=== PATIENT | female | born 1990 | race Caucasian/White ===

== ENCOUNTER → 2019-04-20 17:08 | Outpatient (CLI) | payer OTHER, SELFPAY ==
[2019-04-20 17:31] LABS: Basophils # 0.1 K/mm3 (0-0.2); Basophils % 0.5 % (0.1-2.0); Eosinophils # 0.2 K/mm3 (0.0-0.4); Eosinophils % 1.7 % (0.1-12.0); Hematocrit 42.2 % (37.0-47.0); Hemoglobin 13.5 g/dL (12.2-16.2); Lymphocytes # 2.9 K/mm3 (0.7-4.5); Lymphocytes % 29.6 % (10-50); Mean Corpuscular HGB Conc 32.1 g/dL (31.8-35.4); Mean Corpuscular Hemoglobin 29.8 pg (27.0-31.2); Mean Corpuscular Volume 92.8 fl (81-99); Monocytes # 0.4 K/mm3 (0.1-1.0); Monocytes % 4.6 % (1.7-9.3); Neutrophils # 6.2 K/mm3 (1.8-7.8); Neutrophils % 63.7 % (37.0-80.0); Platelet Count 341 K/mm3 (142-424); Red Blood Count 4.54 M/mm3 (4.20-5.40); Red Cell Distribution Width 13.5 % (11.5-17.5); White Blood Count 9.7 K/mm3 (4.8-10.8)
[2019-04-20 19:35] LABS: Alanine Aminotransferase 15 U/L (12-78); Albumin Level 3.7 gm/dL (3.4-5.0); Albumin/Globulin Ratio 1.1 (1.1-1.8); Alkaline Phosphatase 63 U/L (46-116); Anion Gap 11.2 mEq/L (5-15); Aspartate Amino Transferase 14 U/L (15-37); Bilirubin,Total 0.4 mg/dL (0.2-1.0); Blood Urea Nitrogen 12 mg/dL (7-18); Calcium 8.9 mg/dL (8.5-10.1); Carbon Dioxide 25 mmol/L (21.0-32.0); Chloride 104 mmol/L (98-107); Cholesterol 163 mg/dL (140-200); Creatinine,Serum 0.69 mg/dL (0.55-1.02); Estimated Glomerular Filt Rate 101 ml/min (>60); Free T4 (Free Thyroxine) 0.97 ng/dl (0.76-1.46); GFR (African American) 122 ML/MIN (>60); Globulin 3.3 gm/dl (1.3-3.2); Glucose 76 mg/dL (74-106); HDL Cholesterol 41 mg/dL (29-89); LDL Cholesterol 105 mg/dL (0-130); Potassium 4.2 mmoL/L (3.5-5.1); Sodium 136 mmol/L (136-145); Thyroid Stimulating Hormone 0.48 uIU/ml (0.358-3.740); Triglycerides 83 mg/dL (30-200); VLDL Cholesterol 17 mg/dL (0-40)
[2019-04-23 13:56] LABS: Vitamin D 25 Hydroxy 14.7 ng/mL (30.0-100.0)
== END ==
PROVIDERS: Visit Provider Nurse Practitioner Family
DX: R53.83 Other fatigue (principal); E55.9 Vitamin D deficiency, unspecified
CPT/HCPCS: 80053; 80061; 82652; 84439; 84443; 85025

== ENCOUNTER 2020-02-01 06:55 | Emergency (ER) | payer OTHER, SELFPAY ==
[2020-02-01 06:57] VITALS: BP 116/76; PULSE 89; RESP 16; TEMP 36.8; O2SAT 100; BMI 29.2
[2020-02-01 07:19] LABS: Microscopic, Urine URINE MICROSCOPIC (MICROSCOPIC)
[2020-02-01 07:23] LABS: Chloride 107 mmol/L (98-107); Potassium 3.7 mmoL/L (3.5-5.1); Sodium 138 mmol/L (136-145)
--- NOTE | 2020-02-01 07:24 | HMH.EDNVD ---
ED Disposition Clinical Impression: Food poisoning, Headache above the eye region Disposition: Home, Self-Care Condition on Discharge: Good Instructions: DI for Nausea -- Adult, DI for Nausea -- Child, DI for Diarrhea and Traveler's Diarrhea -- Adult, DI for Diarrhea and Traveler's Diarrhea -- Child Prescriptions: Ondansetron [Zofran 4mg ODT] 4 mg PO TID PRN 4 Days #15 tab.rapdis PRN Reason: Nausea Transmission Status: Pending to [facility] Referrals: Ulises Vides MD [Primary Care Provider] - - Critical Care Critical Care Time: No Attestation: On , the high probability of a clinically significant, sudden or life threatening deterioration of the following system(s) required my full and direct attention, intervention and personal management. The time I documented below is in addition to time spent performing reported procedures but includes the following listed in this critical care notation. Medical Decision Making - Medical Records Medical records reviewed: Yes: I reviewed the patient's medical records. - Tom Inquiry Pt receiving controlled substance: No Vital Signs: 02/01/20 06:57 Temperature 98.2 F Temperature Source Oral Pulse Rate [Left Radial] 89 Respiratory Rate 16 Blood Pressure [Right Arm] 116/76 Blood Pressure Mean [Right Arm] 89 Blood Pressure Source [Right Arm] Automatic Cuff Blood Pressure Position [Right Arm] Sitting 02 Sat by Pulse Oximetry 100 Oxygen Delivery Method Room Air - Lab Data Lab results reviewed: Yes: I reviewed the patient's lab results. Orders (Tests/Meds): ED MEDICATIONS Generic Name Dose Route Start Last Admin Trade Name Freq PRN Reason Stop Dose Admin Sodium Chloride 1,000 mls @ 999 mls/hr 02/01/20 07:15 02/01/20 07:16 Sod Chlor 0.9% 1000ml Bag IV 02/01/20 08:15 999 mls/hr .Q1H1M JACQUIE Administration ORDERS Category Date Time Status Complete Blood Count Auto Diff Stat Lab 02/01/20 07:10 Received Comprehensive Metabolic Panel Stat Lab 02/01/20 07:10 Received Ethyl Alcohol Stat Lab 02/01/20 07:10 Received UDS [Drug Screen,Urine] Stat Lab 02/01/20 07:10 Received Urinalysis and Microscopic Stat Lab 02/01/20 07:10 Received Urine , HCG Qual. Stat Lab 02/01/20 07:10 Received Nausea/Vomiting/Diarrhea HPI - General Chief complaint: Nausea/Vomiting/Diarrhea Stated complaint: Headache,Vomiting Time Seen by Provider: 02/01/20 07:24 Mode of Arrival: Ambulatory Source of Information: Patient Limitations: No Limitations Description of Symptoms (Recalled from ER Triage Doc. by RN): pt stated she had multiple episodes of vomiting since 2am this morning. pt stated she went to work this morning and got sick at work so they sent her home to be evaluated. pt denies any diarrhea or abd. pain at this time. pt stated i feel fine, i just have a slight headache. - History of Present Illness HPI Narrative: 29-year-old female presents the ED with an acute onset of nausea vomiting and headache. Patient states that she presented to work was her first day at work and they sent her here to be evaluated secondary to having one episode of emesis at work and having a headache. Patient states she has a history of headaches this is very similar to previous headaches that she has had in the past she describes the pain as a bandlike constriction going around her head and rates this pain 4 out of 10. She states alleviating factors include lying down and resting exacerbating factors include noises and bright lights. Patient denies any recent fever shakes or chills. Patient denies any sore throat or loss of taste or smell or arthralgias or myalgias or shortness of breath or cough. - Related Data Home Medications Medication Instructions Recorded Confirmed Escitalopram Oxalate 10 mg PO QDAY 06/22/19 06/22/19 Previous Rx's Medication Instructions Recorded Gentamicin Sulfate [Garamycin 0.3% 1 - 2 drops EYE-LEFT Q4H 7 Days #
[2020-02-01 07:25] LABS: Appearance,Urine CLEAR (Clear); Bilirubin,Urine Negative (Negative); Blood Urea Nitrogen 14 mg/dl (7-17); Blood, Urine Negative (Negative); Color,Urine YELLOW (Yellow); Creatinine Clearance Estimated 114 mL/min (50-200); Estimated Glomerular Filt Rate 84 ml/min (>60); GFR (African American) 102 ML/MIN (>60); Glucose,Urine (UA) Negative (Negative); Ketones,Urine Negative (Negative); Leukocyte Esterase,Urine Negative (Negative); Nitrate,Urine Negative (Negative); Protein,Urine Negative (Negative); Specific Gravity, Urine >= 1.030 (1.005-1.030); Urobilinogen,Urine 0.2 EU/dl (0.2)
[2020-02-01 07:26] LABS: Alanine Aminotransferase 21 U/L (12-78); Albumin Level 4.2 g/dl (3.5-5.0); Albumin/Globulin Ratio 1.3 (1.1-1.8); Alkaline Phosphatase 64 U/L (38-126); Anion Gap 10.7 mEq/L (5-15); Aspartate Amino Transferase 28 U/L (14-36); Bilirubin,Total 0.8 mg/dl (0.2-1.3); Calcium 9.5 mg/dl (8.4-10.2); Carbon Dioxide 24 mmol/L (22.0-30.0); Globulin 3.3 g/dL (1.3-3.2); Glucose 117 mg/dl (74-100); Total Protein,Serum 7.5 g/dl (6.3-8.2)
[2020-02-01 07:28] LABS: Basophils # 0.1 K/mm3 (0-0.2); Eosinophils # 0.3 K/mm3 (0.0-0.4); Eosinophils % 4.1 % (0.1-12.0); Hematocrit 46.5 % (37.0-47.0); Hemoglobin 16.2 g/dL (12.2-16.2); Lymphocytes # 2.6 K/mm3 (0.7-4.5); Lymphocytes % 34.5 % (10-50); Mean Corpuscular HGB Conc 34.8 g/dL (31.8-35.4); Mean Corpuscular Hemoglobin 32.1 pg (27.0-31.2); Mean Corpuscular Volume 92.2 fl (81-99); Mean Platelet Volume 7.7 fl (7.4-10.4); Monocytes # 0.5 K/mm3 (0.1-1.0); Neutrophils # 4.1 K/mm3 (1.8-7.8); Neutrophils % 54.4 % (37.0-80.0); Platelet Count 337 K/mm3 (142-424); Red Blood Count 5.04 M/mm3 (4.20-5.40); Urine Pregnancy, HCG Qual. Negative (Negative); White Blood Count 7.5 K/mm3 (4.8-10.8)
[2020-02-01 07:29] LABS: Ethyl Alcohol < 10 mg/dl (0-10)
[2020-02-01 07:35] LABS: Barbiturates Screen,Urine Negative ng/ml (<200)
[2020-02-01 07:36] LABS: Benzodiazepines Screen,Urine Negative ng/ml (<200)
[2020-02-01 07:37] VITALS: BP 118/70; PULSE 85; RESP 16; TEMP 36.8; O2SAT 100
[2020-02-01 07:37] LABS: Amphetamine/Metha Screen,Urine Negative ng/ml (<1000); Cannabinoid Screen,Urine Positive ng/ml (<50)
[2020-02-01 07:38] LABS: Cocaine Screen,Urine Negative ng/ml (<300)
[2020-02-01 07:39] LABS: Methadone Screen,Urine Negative ng/ml (<300); Opiate Screen,Urine Negative ng/ml (<300)
[2020-02-01 07:40] LABS: Phencyclidine Screen,Urine Negative ng/ml (<25)
== END 2020-02-01 07:46 | disposition home or self-care (01) ==
PROVIDERS: Emergency Provider Family Medicine; PCP Emergency Medicine
DX: A05.9 Bacterial foodborne intoxication, unspecified (principal); R51 Headache; F17.210 Nicotine dependence, cigarettes, uncomplicated
CPT/HCPCS: 80053; 80305; 81001; 81025; 85025; 96365; 99282

== ENCOUNTER 2020-04-07 06:51 | Emergency (ER) | payer OTHER, SELFPAY ==
[2020-04-07 07:00] VITALS: BP 166/89; PULSE 96; RESP 16; TEMP 36.6; O2SAT 98; BMI 28.3
[2020-04-07 07:19] LABS: Microscopic, Urine URINE MICROSCOPIC (MICROSCOPIC)
[2020-04-07 07:25] LABS: Appearance,Urine CLEAR (Clear); Bilirubin,Urine Negative (Negative); Blood, Urine Negative (Negative); Color,Urine YELLOW (Yellow); Glucose,Urine (UA) Negative (Negative); Ketones,Urine Negative (Negative); Leukocyte Esterase,Urine Negative (Negative); Nitrate,Urine POSITIVE (Negative); Protein,Urine Negative (Negative); Specific Gravity, Urine >= 1.030 (1.005-1.030); Urobilinogen,Urine 0.2 EU/dl (0.2)
[2020-04-07 07:29] LABS: Chloride 108 mmol/L (98-107); Potassium 4.1 mmoL/L (3.5-5.1); Sodium 138 mmol/L (136-145)
[2020-04-07 07:31] LABS: Alanine Aminotransferase 25 U/L (12-78); Alkaline Phosphatase 55 U/L (38-126); Amylase 55 U/L (30-110); Anion Gap 10.1 mEq/L (5-15); Aspartate Amino Transferase 28 U/L (14-36); Bilirubin,Total 0.3 mg/dl (0.2-1.3); Blood Urea Nitrogen 11 mg/dl (7-17); Carbon Dioxide 24 mmol/L (22.0-30.0); Creatinine Clearance Estimated 110 mL/min (50-200); Estimated Glomerular Filt Rate 84 ml/min (>60); GFR (African American) 102 ML/MIN (>60)
[2020-04-07 07:32] LABS: Albumin Level 4.2 g/dl (3.5-5.0); Albumin/Globulin Ratio 1.4 (1.1-1.8); Calcium 9.4 mg/dl (8.4-10.2); Glucose 103 mg/dl (74-100); Lipase 78 U/L (23-300); Total Protein,Serum 7.2 g/dl (6.3-8.2)
[2020-04-07 07:35] LABS: Basophils # 0.1 K/mm3 (0-0.2); Basophils % 0.6 % (0.1-2.0); Eosinophils # 0.4 K/mm3 (0.0-0.4); Eosinophils % 4.2 % (0.1-12.0); Hematocrit 46.3 % (37.0-47.0); Hemoglobin 16.1 g/dL (12.2-16.2); Lymphocytes # 2.9 K/mm3 (0.7-4.5); Lymphocytes % 32.3 % (10-50); Mean Corpuscular HGB Conc 34.7 g/dL (31.8-35.4); Mean Corpuscular Hemoglobin 32.6 pg (27.0-31.2); Mean Platelet Volume 8.1 fl (7.4-10.4); Monocytes # 0.5 K/mm3 (0.1-1.0); Neutrophils # 5.2 K/mm3 (1.8-7.8); Neutrophils % 57.1 % (37.0-80.0); Platelet Count 302 K/mm3 (142-424); Red Blood Count 4.93 M/mm3 (4.20-5.40); Red Cell Distribution Width 13.6 % (11.5-17.5)
[2020-04-07 07:36] LABS: Urine Pregnancy, HCG Qual. Negative (Negative)
[2020-04-07 07:38] LABS: C-Reactive Protein 0.6 mg/L (0-4)
[2020-04-07 07:40] LABS: Bacteria,Urine Trace /lpf
--- NOTE | 2020-04-07 08:05 | XR_ITS ---
PROCEDURE: XR CHEST 2V CLINICAL HISTORY: cough COMPARISON: CT CTAC CTA-CHEST from 11/11/2012 CR CXR CHEST(2 VIEWS-NOT PORTABLE) from 11/11/2012 FINDINGS: The cardiomediastinal silhouette and pulmonary vascularity are within normal limits. The lungs are clear without infiltrates, suspicious nodules, or pleural effusions. Calcified granulomas are present in the right upper lobe No acute bony abnormalities. IMPRESSION: No acute findings. Dictated by: Randall De La Cruz MD 04/07/2020 09:50 Randall De La Cruz MD in [place] 04/07/2020 09:50
[2020-04-07 08:06] LABS: Erythrocyte Sedimentation Rate 7 mm/hr (0-20)
[2020-04-07 08:22] VITALS: BP 120/66; PULSE 61; RESP 16; O2SAT 99
--- NOTE | 2020-04-07 08:22 | HMH.EDGENADL ---
ED Disposition Clinical Impression: Gastroenteritis UTI (urinary tract infection) Qualifiers: Urinary tract infection type: acute cystitis Hematuria presence: without hematuria Qualified Code(s): N30.00 - Acute cystitis without hematuria Disposition: Home, Self-Care Condition on Discharge: Good Instructions: Urinary Tract Infection Prescriptions: cephALEXin [Keflex 500mg Cap] 500 mg PO BID #14 cap Transmission Status: Pending to [facility] Ondansetron [Zofran 4mg ODT] 4 mg PO BIDP PRN #10 tab PRN Reason: Nausea And Vomiting Transmission Status: Pending to [facility] Referrals: Brian Tyler MD [Primary Care Provider] - - Critical Care Critical Care Time: No Attestation: On 04/07/20, the high probability of a clinically significant, sudden or life threatening deterioration of the following system(s) required my full and direct attention, intervention and personal management. The time I documented below is in addition to time spent performing reported procedures but includes the following listed in this critical care notation. Medical Decision Making - Medical Records Medical records reviewed: Yes: I reviewed the patient's medical records. - Tom Inquiry Pt receiving controlled substance: No Vital Signs: 04/07/20 07:00 04/07/20 08:22 Temperature 97.9 F Temperature Source Oral Pulse Rate [Right] 96 H 61 Respiratory Rate 16 16 Blood Pressure [Right Arm] 166/89 H 120/66 Blood Pressure Mean [Right Arm] 114 84 Blood Pressure Source [Right Arm] Automatic Cuff Automatic Cuff Blood Pressure Position [Right Arm] Sitting Sitting 02 Sat by Pulse Oximetry 98 99 Oxygen Delivery Method Room Air Room Air - Lab Data Lab Results 04/07/20 06:55: Urine Color Yellow, Urine Appearance Clear, Urine pH 6.0, Ur Specific Mcalister >= 1.030, Urine Protein Negative, Urine Glucose (UA) Negative, Urine Ketones Negative, Urine Blood Negative, Urine Nitrate Positive, Urine Bilirubin Negative, Urine Urobilinogen 0.2, Ur Leukocyte Esterase Negative, Urine WBC 3-5, Ur Squamous Epith Cells 3-5, Urine Bacteria Trace 04/07/20 06:55: WBC 9.0, RBC 4.93, Hgb 16.1, Hct 46.3, MCV 94.0, MCH 32.6 H, MCHC 34.7, RDW 13.6, Plt Count 302, MPV 8.1, Neut % (Auto) 57.1, Lymph % (Auto) 32.3, Owen % (Auto) 6.0, Eos % (Auto) 4.2, Baso % (Auto) 0.6, Neut # (Auto) 5.2, Lymph # (Auto) 2.9, Owen # (Auto) 0.5, Eos # (Auto) 0.4, Baso # (Auto) 0.1, ESR 7 04/07/20 06:55: Sodium 138, Potassium 4.1, Chloride 108 H, Carbon Dioxide 24, Anion Gap 10.1, BUN 11, Creatinine 0.80, Estimated Creat Clear 110, Estimated GFR 84, Est GFR ( Amer) 102, Glucose 103 H, Calcium 9.4, Total Bilirubin 0.3, AST 28, ALT 25, Alkaline Phosphatase 55, C-Reactive Protein 0.6, Total Protein 7.2, Albumin 4.2, Globulin 3.0, Albumin/Globulin Ratio 1.4, Amylase 55, Lipase 78 04/07/20 06:55: Influenza Type A Ag Negative, Influenza Type B Ag Negative 04/07/20 06:55: Urine HCG, Qual Negative Result diagrams: 04/07/20 06:55 04/07/20 06:55 Orders (Tests/Meds): ED MEDICATIONS Discontinued Medications Generic Name Dose Route Start Last Admin Trade Name Freq PRN Reason Stop Dose Admin Sodium Chloride 1,000 mls @ 999 mls/hr 04/07/20 07:15 04/07/20 07:11 Sod Chlor 0.9% 1000ml Bag IV 04/07/20 08:15 999 mls/hr .Q1H1M JACQUIE Administration Ketorolac Tromethamine 30 mg 04/07/20 07:07 04/07/20 07:11 Ketorolac 30mg/Ml Vial IV 04/07/20 07:08 30 mg ONCE ONE Administration Ondansetron HCl 4 mg 04/07/20 07:07 04/07/20 07:11 Ondansetron 4mg/2ml Vial IV 04/07/20 07:08 4 mg ONCE ONE Administration ORDERS Category Date Time Status XR chest 2V Stat Exams 04/07/20 08:05 Taken Covid-19 Nasal PCR ([facility]) Routine Lab 04/07/20 08:05 Received - Radiology Data #1 Image(s): Chest Image Reviewed: Yes I reviewed the patient's radiology results, Yes I reviewed the patient's radiology image Preliminary Findings: Normal/NAD - Ree
[2020-04-07 09:19] VITALS: BP 122/81; PULSE 79; RESP 17; TEMP 36.8; O2SAT 100
== END 2020-04-07 09:24 | disposition home or self-care (01) ==
PROVIDERS: Emergency Provider Emergency Medicine; PCP Internal Medicine Adolescent Medicine
DX: Z20.828 Contact with and (suspected) exposure to other viral communicable diseases (principal); K52.9 Noninfective gastroenteritis and colitis, unspecified; N30.00 Acute cystitis without hematuria; F17.210 Nicotine dependence, cigarettes, uncomplicated
CPT/HCPCS: 71046; 80053; 81001; 81025; 82150; 83690; 85025; 85651; 86140; 87275; 87276; 96365; 96375; 99283; J2405; U0003

== ENCOUNTER 2020-04-29 10:30 | Emergency (ER) | payer OTHER, SELFPAY ==
[2020-04-29 10:55] VITALS: BP 141/87; PULSE 73; RESP 19; TEMP 36.9; O2SAT 99; BMI 25.4
--- NOTE | 2020-04-29 11:08 | HMH.EDUTC ---
[facility] [place] Clinical Impression: Encounter for laboratory testing for COVID-19 virus Disposition: Home, Self-Care Condition on Discharge: Good Instructions: Preventing the Spread of Coronavirus Discharge Instructions Additional Instructions: *Monitor Temp, Over the counter Motrin or Tylenol as directed/as needed Tylenol every 4 hours and Motrin every 6 hours (as long as your family doctor has told you that you can take it) for fever or pain. and straight to ER if unable to lower temp less than 101.0 after medication given *Warm salt water gargles may help to soothe the throat *Throat Lozenges *Warm fluids like tea with honey may help to soothe the throat *Sleep elevated *Humidifier/Vaporizer Follow up IMMEDIATELY for new or worsening symptoms or no Noticeable improvement over the next 48-72 hours. 911 for difficulty breathing or swallowing You was tested for today for COVID19 your test result should be back in the next 24-48 hours, you may call to the [facility] tomorrow to see if your test results are back and the result [phone] [facility] hours are 9am-9pm You was given a handout with instructions for Self Quarantine and Self isolation for while you wait on test results and what to do if they are positive If you are positive the Health Dept will be contacting you also Referrals: Brian Tyler MD [Primary Care Provider] - As needed Forms: Work/School Release Time of Disposition: 11:11 Medical Decision Making - Tom Inquiry Pt receiving controlled substance: No Tom was queried for this patient: No Vital Signs: 04/29/20 10:55 Temperature 98.4 F Temperature Source Oral Pulse Rate [Right Brachial] 73 Respiratory Rate 19 Blood Pressure [Right Arm] 141/87 H Blood Pressure Mean [Right Arm] 105 Blood Pressure Source [Right Arm] Automatic Cuff Blood Pressure Position [Right Arm] Sitting 02 Sat by Pulse Oximetry 99 Oxygen Delivery Method Room Air Orders (Tests/Meds): ORDERS Category Date Time Status Covid-19 Nasal PCR Sendout Jaden Stat Lab 04/29/20 10:55 Received [facility] [place]PI - General Stated complaint: Covid test Time Seen by Provider: 04/29/20 11:08 Mode of Arrival: Ambulatory Source of Information: Patient Limitations: No Limitations Description of Symptoms (Recalled from Triage Doc. by RN): PATIENT REQUESTING COVID TEST. STATES HER DAUGHTER TEST POSITIVE AND HER JOB IS WANTING TEST BEFORE SHE CAN RETURN. DENIES SYMPTOMS HEENT Symptoms (Recalled from RN notes): No Resp Symptoms (Recalled from RN notes): No Skin Symptoms (Recalled from RN notes): No MS Symptoms (Recalled from RN notes): No Functional Status (Recalled from RN notes): WNL - History of Present Illness Provider Complaint: Patient state that she is here to get tested for COVID States that her daughter recently tested positive but she hasnt been around her but her work is making her get tested for COVID before she can return to work Denies any symptoms - Related Data Home Medications Medication Instructions Recorded Confirmed Escitalopram Oxalate 10 mg PO QDAY 06/22/19 04/07/20 Previous Rx's Medication Instructions Recorded Ondansetron [Zofran 4mg ODT] 4 mg PO BIDP PRN #10 tab 04/07/20 cephALEXin [Keflex 500mg Cap] 500 mg PO BID #14 cap 04/07/20 Allergies Allergy/AdvReac Type Severity Reaction Status Date / Time diphenhydramine Allergy Severe Unknown Verified 05/07/19 16:20 [From Benadryl Allergy] allergy reaction - Worker's Comp Is this a Worker's Comp case?: No [facility] History - Hepatitis A Screen Drug use history?: No High risk sexual behaviors?: No History of sexually transmitted infection?: No Currently employed?: No Childcare worker?: No Do you have indoor plumbing?: Yes Do you have electricity?: Yes Attestation statement:: This patient has been screened for Hepatitis A risk factors. I have reviewed the patient's past medical history: Yes Medical History: Denies:: Cancer
[2020-04-29 11:11] VITALS: BP 141/87; PULSE 73; RESP 19; TEMP 36.9; O2SAT 99
[2020-04-30 15:50] LABS: Covid-19 Nasal PCR Sendout Lex Not Detected
== END 2020-04-29 11:15 | disposition home or self-care (01) ==
PROVIDERS: Emergency Provider Nurse Practitioner; PCP Internal Medicine Adolescent Medicine
DX: Z20.828 Contact with and (suspected) exposure to other viral communicable diseases (principal)
CPT/HCPCS: 99201; U0004

== ENCOUNTER → 2020-11-12 18:19 | Outpatient (CLI) | payer OTHER, SELFPAY ==
[2020-11-12 18:52] LABS: Basophils # 0.1 K/mm3 (0-0.2); Basophils % 0.5 % (0.1-2.0); Eosinophils # 0.2 K/mm3 (0.0-0.4); Eosinophils % 2.5 % (0.1-12.0); Hematocrit 43.8 % (37.0-47.0); Hemoglobin 15.2 g/dL (12.2-16.2); Lymphocytes # 2.9 K/mm3 (0.7-4.5); Lymphocytes % 29.5 % (10-50); Mean Corpuscular HGB Conc 34.7 g/dL (31.8-35.4); Mean Corpuscular Volume 92.2 fl (81-99); Mean Platelet Volume 8.2 fl (7.4-10.4); Monocytes # 0.5 K/mm3 (0.1-1.0); Monocytes % 4.8 % (1.7-9.3); Neutrophils # 6.1 K/mm3 (1.8-7.8); Neutrophils % 62.7 % (37.0-80.0); Platelet Count 319 K/mm3 (142-424); Red Blood Count 4.75 M/mm3 (4.20-5.40); Red Cell Distribution Width 12.7 % (11.5-17.5); White Blood Count 9.7 K/mm3 (4.8-10.8)
[2020-11-12 19:02] LABS: Alanine Aminotransferase 15 U/L (12-78); Albumin Level 4.3 g/dl (3.5-5.0); Albumin/Globulin Ratio 1.4 (1.1-1.8); Alkaline Phosphatase 65 U/L (38-126); Anion Gap 13.2 mEq/L (5-15); Aspartate Amino Transferase 22 U/L (14-36); Bilirubin,Total 0.6 mg/dl (0.2-1.3); Blood Urea Nitrogen 14 mg/dl (7-17); Calcium 9.2 mg/dl (8.4-10.2); Carbon Dioxide 25 mmol/L (22.0-30.0); Chloride 104 mmol/L (98-107); Chol/HDL Ratio 5.2 (1-3.5); Cholesterol 183 mg/dl (140-200); Estimated Glomerular Filt Rate 98 ml/min (>60); GFR (African American) 119 ML/MIN (>60); Glucose 76 mg/dl (74-100); HDL Cholesterol 35 mg/dl (40-60); Potassium 4.2 mmoL/L (3.5-5.1); Sodium 138 mmol/L (136-145); Total Protein,Serum 7.3 g/dl (6.3-8.2); Triglycerides 107 mg/dl (30-150); VLDL Cholesterol 21 mg/dL (0-40)
[2020-11-12 19:19] LABS: 25-OH Vitamin D, Total 26.6 ng/mL (30-100)
[2020-11-12 19:21] LABS: T4 (Thyroxine) 10.1 ug/dl (5.53-11.0)
[2020-11-12 19:33] LABS: Thyroid Stimulating Hormone 1.28 uIU/mL (0.465-4.68)
== END ==
PROVIDERS: Visit Provider Nurse Practitioner Family
DX: R53.83 Other fatigue (principal); E55.9 Vitamin D deficiency, unspecified; F32.9 Major depressive disorder, single episode, unspecified; F41.9 Anxiety disorder, unspecified; Z72.0 Tobacco use
CPT/HCPCS: 80053; 80061; 82306; 84436; 84443; 85025

== ENCOUNTER 2021-02-03 18:50 | Emergency (ER) | payer OTHER, SELFPAY ==
[2021-02-03 19:20] VITALS: BP 116/81; PULSE 91; RESP 18; TEMP 37; O2SAT 100; BMI 23.8
--- NOTE | 2021-02-03 20:09 | HMH.EDUTC ---
[facility] [place] Disposition Clinical Impression: Exposure to COVID-19 virus Disposition: Home, Self-Care Condition on Discharge: Good Instructions: DI for COVID-19 (Suspected or Confirmed ), Preventing the Spread of Coronavirus Discharge Instructions Additional Instructions: *Monitor Temp, Over the counter Motrin or Tylenol as directed/as needed Tylenol every 4 hours and Motrin every 6 hours (as long as your family doctor has told you that you can take it) for fever or pain. and straight to ER if unable to lower temp less than 101.0 after medication given Follow up IMMEDIATELY for new or worsening symptoms or no Noticeable improvement over the next 48-72 hours. 911 for difficulty breathing or swallowing You were tested for today for COVID19 your test result should be back in the next 24-48 hours, You was given handout to access [facility] your results should be available on there later today if you do not have internet or trouble accessing you can call at [phone] You was given a handout with instructions for Self Quarantine and Self isolation for while you wait on test results and what to do if they are positive If you are positive the Health Dept will be contacting you also Make sure to take your Vitamins Vit. C Vit D and Zinc if you can take them Referrals: Ulises Vides MD [Primary Care Provider] - As needed Forms: Work/School Release Medical Decision Making - Tom Inquiry Pt receiving controlled substance: No Tom was queried for this patient: No Vital Signs: 02/03/21 19:20 Temperature 98.6 F Temperature Source Oral Pulse Rate [Right Brachial] 91 H Respiratory Rate 18 Blood Pressure [Right Arm] 116/81 Blood Pressure Mean [Right Arm] 92 Blood Pressure Source [Right Arm] Automatic Cuff Blood Pressure Position [Right Arm] Sitting 02 Sat by Pulse Oximetry 100 Oxygen Delivery Method Room Air Orders (Tests/Meds): ORDERS Category Date Time Status Covid-19 Nasal PCR ([facility]) Routine Lab 02/03/21 19:15 Ordered [facility] [place] HPI - General Stated complaint: covid test Time Seen by Provider: 02/03/21 20:09 Mode of Arrival: Ambulatory Source of Information: Patient Limitations: No Limitations Description of Symptoms (Recalled from Triage Doc. by RN): COVID TEST D/T EXPOSURE. DENIES SYMPTOMS HEENT Symptoms (Recalled from RN notes): No Resp Symptoms (Recalled from RN notes): No Skin Symptoms (Recalled from RN notes): No MS Symptoms (Recalled from RN notes): No Functional Status (Recalled from RN notes): WNL - History of Present Illness Provider Complaint: Patient state that she has been around her mother all week and today she tested positive for COVID states that she is not having any symptom but wanted to get tested - Related Data Previous Rx's Medication Instructions Recorded bupropion HCl 75 mg tablet See Rx Instructions .ROUTE 12/15/20 .COMPLEX #90 tab Allergies Allergy/AdvReac Type Severity Reaction Status Date / Time diphenhydramine Allergy Severe Unknown Verified 11/12/20 15:48 [From Benadryl Allergy] allergy reaction - Worker's Comp Is this a Worker's Comp case?: No [facility] History - Hepatitis A Screen Drug use history?: No High risk sexual behaviors?: No History of sexually transmitted infection?: No Currently employed?: No Childcare worker?: No Do you have indoor plumbing?: Yes Do you have electricity?: Yes Attestation statement:: This patient has been screened for Hepatitis A risk factors. I have reviewed the patient's past medical history: Yes Medical History: Denies:: Cancer, Diabetes Mellitus Type 1, Diabetes Mellitus Type 2, Gastroesophageal Reflux Disease(GERD), Gastrointestinal Bleed, Hiatal Hernia, Hypertension, MRSA Comment: Pelvic Reconstruction Laterality Cases: Right: Other, Bilateral: Tonsillectomy Other Surgeries: Yes: Other Amputation: No - Social History Smoking Status: Current every day smoker Tobacco Type: cigarettes # P
[2021-02-03 20:17] VITALS: BP 116/81; PULSE 91; RESP 18; TEMP 37; O2SAT 100
== END 2021-02-03 20:18 | disposition home or self-care (01) ==
PROVIDERS: Emergency Provider Nurse Practitioner; PCP Emergency Medicine
DX: Z20.822 Contact with and (suspected) exposure to COVID-19 (principal); F17.210 Nicotine dependence, cigarettes, uncomplicated
CPT/HCPCS: 99202; G0463; U0003

== ENCOUNTER → 2021-04-17 12:44 | Outpatient (CLI) | payer OTHER, SELFPAY | PROVIDERS: PCP Emergency Medicine; Visit Provider Nurse Practitioner | DX: Z20.822 Contact with and (suspected) exposure to COVID-19 (principal) | CPT/HCPCS: C9803; U0003; U0005 ==

== ENCOUNTER → 2021-04-24 13:39 | Outpatient (CLI) | payer OTHER, SELFPAY | PROVIDERS: PCP Emergency Medicine; Visit Provider Nurse Practitioner | DX: Z20.822 Contact with and (suspected) exposure to COVID-19 (principal) | CPT/HCPCS: C9803; U0003; U0005 ==

== ENCOUNTER 2021-09-02 16:13 | Emergency (ER) | payer OTHER, SELFPAY ==
[2021-09-02 17:40] VITALS: BP 0/0; PULSE 0; RESP 0; TEMP -17.7; TEMP 0
== END 2021-09-02 17:45 | disposition left against medical advice (07) ==
PROVIDERS: Emergency Provider Nurse Practitioner Family; PCP Emergency Medicine
DX: Z53.21 Procedure and treatment not carried out due to patient leaving prior to being seen by health care provider (principal)

== ENCOUNTER 2021-09-13 15:03 | Emergency (ER) | payer OTHER, SELFPAY ==
[2021-09-13 15:04] VITALS: BP 126/82; PULSE 90; RESP 16; TEMP 36.7; O2SAT 100; BMI 25.4
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
[2021-09-13 15:54] VITALS: BP 126/82; PULSE 70; RESP 16; TEMP 36.8; O2SAT 98
== END 2021-09-13 15:55 | disposition home or self-care (01) ==
LOC: ER 15:31
PROVIDERS: Emergency Provider Emergency Medicine; PCP Emergency Medicine
DX: S16.1XXA Strain of muscle, fascia and tendon at neck level, initial encounter (principal); R51.9 Headache, unspecified; F17.210 Nicotine dependence, cigarettes, uncomplicated; Z88.8 Allergy status to other drugs, medicaments and biological substances; V49.59XA Passenger injured in collision with other motor vehicles in traffic accident, initial encounter
CPT/HCPCS: 99283

== ENCOUNTER 2023-01-30 16:54 | Emergency (ER) | payer OTHER, SELFPAY ==
[2023-01-30 16:55] VITALS: BP 147/97; PULSE 90; RESP 18; TEMP 37.2; O2SAT 99; BMI 27.9
--- NOTE | 2023-01-30 17:04 | EXP.UTC ---
Discharge Plan Disposition Patient Disposition: Home, Self-Care Condition: Good Prescriptions Prescriptions: New benzonatate [benzonatate] 100 mg capsule 100 mg PO TIDP PRN (Reason: Cough) Qty: 30 0RF amoxicillin-pot clavulanate 875-125 mg Tablet 1 tab PO Q12H Qty: 20 0RF methylprednisolone 4 mg Tablets,Dose Pack 4 mg PO DIRECTED Qty: 21 0RF No Action nitrofurantoin monohyd/m-cryst [Macrobid] 100 mg capsule 100 mg PO BID Qty: 14 0RF Rx Instructions: must administer with a meal/food clindamycin HCl 300 mg capsule 300 mg PO BID 7 Days Qty: 14 0RF Referrals Follow up/Referrals: Brian Tyler MD [Primary Care Provider] - See instructions Activity Restrictions/Add. Instructions Additional Instructions/Restrictions: Drink plenty of fluids. Take tylenol or ibuprofen for pain or fever. Take the medications as directed. Follow up with your regular doctor. GO TO THE ER FOR ANY WORSENING SYMPTOMS Clinical Impressions Clinical Impression: Acute bronchitis, Sinusitis, Exposure to 2019 novel coronavirus Stand Alone Forms Stand Alone Forms: Work/School Release Instructions Patient Instructions: DI for Sinusitis, DI for Acute Bronchitis, Coronavirus Disease 2019, Preventing the Spread of Coronavirus Discharge Instructions Discharge ED Provider: Kris Palmer [facility] General Stated complaint: congestion, short of breath Time Seen by Provider: 01/30/23 17:03 History of Present Illness Provider Complaint: She states that for the past 3 days she has had sinus congestion, sore throat, chest congestion, productive cough with greenish sputum, low grade fever and malaise. She has been exposed to covid-19 by her sister having it. Related Data Previous Rx's Medication Instructions Recorded nitrofurantoin 100 mg PO BID #14 caps 09/29/22 monohydrate/macrocrystals 100 mg capsule (Macrobid) clindamycin HCl 300 mg capsule 300 mg PO BID 7 days #14 caps 10/01/22 amoxicillin 875 mg-potassium 1 tab PO Q12H #20 tabs 01/30/23 clavulanate 125 mg tablet benzonatate 100 mg capsule 100 mg PO TIDP PRN Cough #30 caps 01/30/23 methylprednisolone 4 mg tablets in 4 mg PO DIRECTED #21 tabs 01/30/23 a dose pack Allergies Allergy/AdvReac Type Severity Reaction Status Date / Time diphenhydramine Allergy Severe Unknown Verified 09/29/22 10:40 [From Benadryl Allergy] allergy reaction [facility] Disclaimer: The information contained in this section may have been updated after the patient was seen, as this information can be updated by other users. Surgical History H/O foot surgery right H/O pelvic surgery Family History (Updated 09/29/22 @ 10:48 by SAM Guzmán) Family/Other Cancer Social History Smoking Status: Current every day smoker tobacco type: cigarettes packs per day: 1 alcohol intake: never current occupational status: other Travel in the last 8 weeks: None ROS Obtained: Yes All systems reviewed & no additional complaints except as documented Constitutional Constitutional: Reports poor appetite Eyes Eyes: Reports system reviewed and no additional complaints, except as documented ENT Ears, Nose, Mouth, and Throat: Reports as per HPI Cardiovascular Cardiovascular: Reports system reviewed and no additional complaints, except as documented and Denies chest pain Respiratory Respiratory: Denies shortness of breath, Reports chest congestion, Reports cough, Denies stridor and Denies wheezing Gastrointestinal Gastrointestingal: Reports system reviewed and no additional complaints, except as documented; Denies abdominal pain, diarrhea or vomiting Musculoskeletal Musculoskeletal: Reports system reviewed and no additional complaints, except as documented and Denies arthralgias Integumentary/Breasts Skin/Breast: Reports system reviewed and no
[2023-01-30 17:19] LABS: UTC Strep Screen (Rapid) Negative (Negative)
[2023-01-30 17:36] VITALS: BP 147/97; PULSE 90; RESP 18; TEMP 37.2; O2SAT 99
== END 2023-01-30 17:37 | disposition home or self-care (01) ==
PROVIDERS: Emergency Provider Nurse Practitioner Family; PCP Internal Medicine Adolescent Medicine
DX: J20.9 Acute bronchitis, unspecified (principal); J01.90 Acute sinusitis, unspecified; R50.9 Fever, unspecified; R53.81 Other malaise; F17.210 Nicotine dependence, cigarettes, uncomplicated; Z20.822 Contact with and (suspected) exposure to COVID-19
CPT/HCPCS: 87880; 99212; 99214; G0463

== ENCOUNTER 2023-04-18 12:46 | Emergency (ER) | payer OTHER, SELFPAY ==
[2023-04-18 12:55] VITALS: BP 133/87; PULSE 96; RESP 18; TEMP 36.7; O2SAT 98; BMI 29.2
--- NOTE | 2023-04-18 13:06 | EXP.UTC ---
Discharge Plan Disposition Patient Disposition: Home, Self-Care Condition: Good Prescriptions Prescriptions: New azithromycin [Zithromax] 250 mg tablet 250 mg PO UD DOSE PK Qty: 6 0RF Rx Instructions: Take two (2) tablets today, then one (1) tablet days #2 thru #5 benzonatate [benzonatate] 100 mg capsule 100 mg PO TIDP PRN (Reason: Cough) Qty: 30 0RF methylprednisolone 4 mg Tablets,Dose Pack 4 mg PO DIRECTED Qty: 21 0RF Referrals Follow up/Referrals: Ulises Vides MD [Primary Care Provider] - See instructions Activity Restrictions/Add. Instructions Additional Instructions/Restrictions: Drink plenty of fluids. Take tylenol or ibuprofen for pain or fever. Take the medications as directed. Follow up with your regular doctor. GO TO THE ER FOR ANY WORSENING SYMPTOMS Clinical Impressions Clinical Impression: Sinusitis, Acute viral syndrome Stand Alone Forms Stand Alone Forms: Work/School Release Instructions Patient Instructions: Sinusitis, DI for Sinusitis Discharge ED Provider: Kris Palmer [facility] General Stated complaint: eye drainage, LOPEZ, cough Mode of Arrival: Ambulatory Source of Information: Patient Limitations: No Limitations Time Seen by Provider: 04/18/23 13:05 HEENT Symptoms (Recalled from RN notes): Yes Resp Symptoms (Recalled from RN notes): No Skin Symptoms (Recalled from RN notes): No MS Symptoms (Recalled from RN notes): No Functional Status (Recalled from RN notes): n/a History of Present Illness Provider Complaint: She states that she has had congestion, fever, and sore throat for the past 3 days. Related Data Previous Rx's Medication Instructions Recorded azithromycin 250 mg tablet 250 mg PO UD DOSE PK #6 tabs 04/18/23 (Zithromax) benzonatate 100 mg capsule 100 mg PO TIDP PRN Cough #30 caps 04/18/23 methylprednisolone 4 mg tablets in 4 mg PO DIRECTED #21 tabs 04/18/23 a dose pack Allergies Allergy/AdvReac Type Severity Reaction Status Date / Time diphenhydramine Allergy Severe Unknown Verified 04/18/23 13:06 [From Benadryl Allergy] allergy reaction Worker's Comp Is this a Worker's Comp case?: No [facility] Disclaimer: The information contained in this section may have been updated after the patient was seen, as this information can be updated by other users. Surgical History H/O foot surgery right H/O pelvic surgery Family History Family/Other Cancer Social History Smoking Status: Current every day smoker tobacco type: cigarettes packs per day: 1 alcohol intake: never current occupational status: other Travel in the last 8 weeks: None ROS Obtained: Yes All systems reviewed & no additional complaints except as documented Constitutional Constitutional: Reports poor appetite Eyes Eyes: Reports system reviewed and no additional complaints, except as documented ENT Ears, Nose, Mouth, and Throat: Reports as per HPI Cardiovascular Cardiovascular: Reports system reviewed and no additional complaints, except as documented and Denies chest pain Respiratory Respiratory: Denies shortness of breath, Reports chest congestion, Reports cough, Denies stridor and Denies wheezing Gastrointestinal Gastrointestingal: Reports system reviewed and no additional complaints, except as documented; Denies abdominal pain, diarrhea or vomiting Musculoskeletal Musculoskeletal: Reports system reviewed and no additional complaints, except as documented and Denies arthralgias Integumentary/Breasts Skin/Breast: Reports system reviewed and no additional complaints, except as documented and Denies rash Neurologic Neurologic: Denies paresthesias Allergic/Immunologic Allergic/Immunologic: Denies wheezing Physical Exam General General appearance: alert and in no apparent distres
[2023-04-18 13:11] LABS: UTC Strep Screen (Rapid) Negative (Negative)
[2023-04-18 13:25] VITALS: BP 133/87; PULSE 96; RESP 18; TEMP 36.7; O2SAT 98
== END 2023-04-18 13:25 | disposition home or self-care (01) ==
PROVIDERS: Emergency Provider Nurse Practitioner Family; PCP Emergency Medicine
DX: J01.90 Acute sinusitis, unspecified (principal); R50.9 Fever, unspecified; R07.0 Pain in throat; R09.81 Nasal congestion; R51.9 Headache, unspecified; R05.9 Cough, unspecified; B34.9 Viral infection, unspecified; F17.210 Nicotine dependence, cigarettes, uncomplicated
CPT/HCPCS: 87635; 87880; 99212; 99214; G0463

== ENCOUNTER → 2023-04-27 23:00 | Outpatient (CLI) | payer OTHER, SELFPAY ==
[2023-04-27 20:46] LABS: Thyroid Stimulating Hormone 1.16 uIU/mL (0.465-4.68)
[2023-04-27 21:05] LABS: Vitamin B12 288 pg/mL (239-931)
== END ==
PROVIDERS: PCP Emergency Medicine; Visit Provider Internal Medicine
DX: R53.83 Other fatigue (principal)
CPT/HCPCS: 82607; 84443

== ENCOUNTER 2023-07-19 08:58 | Emergency (ER) | payer SELFPAY ==
[2023-07-19 09:05] VITALS: BP 125/89; PULSE 108; RESP 21; TEMP 37.4; O2SAT 97; BMI 27.6
--- NOTE | 2023-07-19 09:15 | ED_ITS ---
Discharge Plan Disposition Patient Disposition: Home, Self-Care Condition: Good Prescriptions Prescriptions: No Action cariprazine 1.5 mg capsule 1.5 mg PO DAILY 30 Days Qty: 30 2RF Referrals Follow up/Referrals: Nelson Ayers DO [Primary Care Provider] - See instructions Activity Restrictions/Add. Instructions Additional Instructions/Restrictions: *Monitor Temp, Over the counter Motrin or Tylenol as directed/as needed Tylenol every 4 hours and Motrin every 6 hours (as long as your family doctor has told you that you can take it) for fever or pain. and straight to ER if unable to lower temp less than 101.0 after medication given *Warm salt water gargles may help to soothe the throat *Throat Lozenges? *Warm fluids like tea with honey may help to soothe the throat? *Sleep elevated *Humidifier/Vaporizer Follow up IMMEDIATELY for new or worsening symptoms or no Noticeable improvement over the next 48-72 hours. 911 for difficulty breathing or swall owing You were tested for today for Upper Respiratory Panel with COVID19 your test result should be back in the next 24 hours, you may check your results on the [facility] [employer] [facility] if your COVID test is positive you must Quarantine for 5 days Clinical Impressions Clinical Impression: Viral syndrome Stand Alone Forms Stand Alone Forms: Work/School Release Instructions Patient Instructions: DI for Viral Syndrome Discharge ED Provider: Leelee West [facility] HPI General Stated complaint: chills, body aches, nauseous Mode of Arrival: Ambulatory Source of Information: Patient Limitations: No Limitations Time Seen by Provider: 07/19/23 09:15 Description of Symptoms (Recalled from Triage Doc. by RN): PATIENT C/O BODY ACHES, COLD SWEATS AND NAUSEA SINCE YESTERDAY HEENT Symptoms (Recalled from RN notes): No Resp Symptoms (Recalled from RN notes): No Skin Symptoms (Recalled from RN notes): No MS Symptoms (Recalled from RN notes): No Functional Status (Recalled from RN notes): WNL History of Present Illness Provider Complaint: Patient states that alot of people at her work has been out sick states that she started feeling bad yesterday with chills, body aches, cold sweats and nausea States that she feels like she has had a fever but did not have a thermometer to check it and when it would break she would start sweating so today when she was still not feeling any better she came in Related Data Previous Rx's Medication Instructions Recorded cariprazine 1.5 mg capsule 1.5 mg PO DAILY 1 month #30 caps 05/03/23 Allergies Allergy/AdvReac Type Severity Reaction Status Date / Time diphenhydramine Allergy Severe Unknown Verified 04/27/23 15:14 [From Benadryl Allergy] allergy reaction Worker's Comp Is this a Worker's Comp case?: No [facility] Disclaimer: The information contained in this section may have been updated after the patient was seen, as this information can be updated by other users. Surgical History H/O foot surgery right H/O pelvic surgery Family History Family/Other Cancer Paternal side Social History Smoking Status: Current every day smoker tobacco type: cigarettes packs per day: 1 alcohol intake: never current occupational status: other Travel in the last 8 weeks: None ROS Obtained: Yes All systems reviewed & no additional complaints except as documented and Yes Systems reviewed as appropriate & no additional complaints except as documented Constitutional Constitutional: Reports system reviewed and no additional complaints, except as documented, Reports as per HPI, Reports body ache, Reports chills and Reports fever(s) ENT Ears, Nose, Mouth, and Throat: Reports system reviewed and no additional complaints, except as documented and Reports as per HPI Cardiovascular Cardiovascular: Reports system reviewed and no additional complaints, except as documented and Reports as per HPI Respiratory Respiratory: Reports system reviewed and no additional complaints, except as documented, Reports as per HPI and Reports cough Gastrointestinal Gastrointestingal: Reports system reviewed and no additional complaints, except as documented, as per HPI and nausea Physical Exam General General appearance: alert and in no apparent distress ENT ENT exam: Present mucous membranes moist Expanded ENT Exam Nose exam: Absent sinus tenderness Respiratory Respiratory exam: Present normal lung sounds bilaterally; Absent respiratory distress or wheezes Cardiovascular Cardiovascular exam: Present regular rate, normal rhythm and normal heart sounds Abdominal Exam Abdominal exam: Present soft and normal bowel sounds; Absent distention or tenderness Neurological Exam Neurological exam: Present alert, oriented X3 and normal gait Medical Decision Making Tom Inquiry Pt receiving controlled substance: No Tom was queried for this patient: No Vital Signs: 07/19/23 09:05 Temperature 99.4 F Temperature Source Oral Pulse Rate [Left Brachial] 108 H Respiratory Rate 21 Blood Pressure [Left Arm] 125/89 Blood Pressure Mean [Left Arm] 101 Blood Pressure Source [Left Arm] Automatic Cuff Blood Pressure Position [Left Arm] Sitting 02 Sat by Pulse Oximetry 97 Oxygen Delivery Method Room Air Lab Data Lab results reviewed: Yes I reviewed the patient's lab results.
[2023-07-19 09:38] LABS: UTC Influenza A Antigen Negative (Negative); UTC Influenza B Antigen Negative (Negative)
[2023-07-19 09:50] VITALS: BP 125/89; PULSE 108; RESP 21; TEMP 37.4; O2SAT 97
[2023-07-19 09:58] LABS: Adenovirus,PCR Not Detected (NotDetected); Coronavirus 19, PCR Not Detected (NotDetected); Coronavirus 229E Not Detected (NotDetected); Coronavirus NL63 Not Detected (NotDetected); Coronavirus OC43 Not Detected (NotDetected); Coronovirus HKU1,PCR Not Detected (NotDetected); Human Metapneumovirus Not Detected (NotDetected); Influenza A, PCR Not Detected (NotDetected); Influenza AH1, PCR Not Detected (NotDetected); Influenza AH3,PCR Not Detected (NotDetected); Influenza B, PCR Not Detected (NotDetected); Parainfluenza 1, PCR Not Detected (NotDetected); Parainfluenza 2, PCR Not Detected (NotDetected); Parainfluenza 3, PCR Not Detected (NotDetected); Parainfluenza 4, PCR Not Detected (NotDetected); Respiratory Syncytial Virus Not Detected (NotDetected); Rhinovirus/Enterovirus Not Detected (NotDetected)
[2023-07-19 11:39] LABS: Influenza AH1, 2009 Detected (NotDetected)
== END 2023-07-19 09:54 | disposition home or self-care (01) ==
PROVIDERS: Emergency Provider Nurse Practitioner; PCP Internal Medicine
DX: J10.1 Influenza due to other identified influenza virus with other respiratory manifestations (principal); R11.0 Nausea; R05.9 Cough, unspecified; M79.18 Myalgia, other site; F17.210 Nicotine dependence, cigarettes, uncomplicated
CPT/HCPCS: 87632; 87635; 87804; 99212; 99214; G0463

== ENCOUNTER 2024-05-05 11:51 | Emergency (ER) | payer SELFPAY ==
[2024-05-05 12:45] VITALS: BP 121/83; PULSE 89; RESP 18; TEMP 36.6; O2SAT 100; BMI 25.7
--- NOTE | 2024-05-05 12:51 | EXP.UTC ---
Discharge Plan Disposition Patient Disposition: Home, Self-Care Condition: Good Prescriptions Prescriptions: New ibuprofen [IBU] 800 mg tablet 800 mg PO Q8HP PRN (Reason: Moderate Pain) Qty: 30 0RF amoxicillin-pot clavulanate 875-125 mg Tablet 1 tab PO Q12H Qty: 20 0RF Referrals Follow up/Referrals: Nelson Ayers DO [Primary Care Provider] - See instructions Activity Restrictions/Add. Instructions Additional Instructions/Restrictions: Take tylenol or ibuprofen for pain or fever. Take the medications as directed. Follow up with your regular doctor. Follow up with your dentist as soon as they can see you. GO TO THE ER FOR ANY WORSENING SYMPTOMS Clinical Impressions Clinical Impression: Dental abscess, Pain, dental Instructions Patient Instructions: Tooth Abscess, DI for Tooth Abscess Print Language Print Language: [place] Discharge ED Provider: Kris Palmer [facility] General Stated complaint: lower jaw swollen, painful Mode of Arrival: Ambulatory Source of Information: Patient Time Seen by Provider: 05/05/24 12:51 Description of Symptoms (Recalled from Triage Doc. by RN): SWELLING FROM TEETH, IN 2 WEEKS GOES TO GET THEM PULLED HEENT Symptoms (Recalled from RN notes): Yes Resp Symptoms (Recalled from RN notes): No Skin Symptoms (Recalled from RN notes): No MS Symptoms (Recalled from RN notes): No Functional Status (Recalled from RN notes): WNL Related Data Previous Rx's ?Medication ?Instructions ?Recorded amoxicillin 875 mg-potassium 1 tab PO Q12H #20 tabs 05/05/24 clavulanate 125 mg tablet ibuprofen 800 mg tablet (IBU) 800 mg PO Q8HP PRN Moderate Pain 05/05/24 #30 tabs Allergies Allergy/AdvReac Type Severity Reaction Status Date / Time diphenhydramine (From Allergy Severe Unknown Verified 04/27/23 15:14 Benadryl Allergy) allergy reaction Worker's Comp Is this a Worker's Comp case?: No [facility] Disclaimer: The information contained in this section may have been updated after the patient was seen, as this information can be updated by other users. Surgical History H/O foot surgery right H/O pelvic surgery Family History Family/Other Cancer Paternal side Social History Smoking Status: Current every day smoker tobacco type: cigarettes packs per day: 1 alcohol intake: never current occupational status: other ROS Obtained: Yes All systems reviewed & no additional complaints except as documented Constitutional Constitutional: Denies chills and Denies fever(s) Eyes Eyes: Denies eye discharge ENT Ears, Nose, Mouth, and Throat: Reports as per HPI, Denies dizziness, Denies otalgia and Denies sore throat Cardiovascular Cardiovascular: Denies chest pain Respiratory Respiratory: Denies shortness of breath, Denies chest congestion, Denies cough, Denies stridor and Denies wheezing Gastrointestinal Gastrointestingal: Denies nausea or vomiting Musculoskeletal Musculoskeletal: Reports system reviewed and no additional complaints, except as documented and Denies arthralgias Integumentary/Breasts Skin/Breast: Denies rash Neurologic Neurologic: Denies dizziness and Denies paresthesias Allergic/Immunologic Allergic/Immunologic: Denies wheezing Physical Exam General General appearance: alert and in no apparent distress Head Head exam: atraumatic, normocephalic and normal inspection Eye Eye exam: Present normal appearance, PERRL and EOMI ENT ENT exam: Present mucous membranes moist, TM's normal bilaterally and normal external ear exam Expanded ENT Exam Nose exam: Absent sinus tenderness Nasal speculum exam: Bilateral: normal Mouth exam: Present normal external inspection; Absent drooling Teeth exam: Present dental caries, fractured tooth # and dental tenderness # Throat exam: Present normal inspection Neck Neck exam: Present normal inspection, full ROM and trachea midline; Absent meningismus or lymphadenopathy Chest Chest inspection: Present normal inspection and symmetric chest wall rise; Absent tenderness Respiratory Respiratory exam: Present normal lung sounds bilaterally; Absent respiratory distress Cardiovascular Cardiovascular exam: Present regular rate and normal rhythm; Absent JVD Abdominal Exam Abdominal exam: Present soft and normal bowel sounds; Absent distention, tenderness or guarding Extremities Exam Extremities exam: Present normal inspection, full ROM and normal capillary refill; Absent calf tenderness Back Exam Back exam: Present normal inspection; Absent tenderness Neurological Exam Neurological exam: Present alert and oriented X3 Psychiatric Psychiatric exam: Present normal affect and normal mood Skin Skin exam: Present warm, dry, intact and normal color Lymphatic Lymphatic Findings: no adenopathy Medical Decision Making Medical Records Medical records reviewed: No I reviewed the patient's medical records. Screening: Per USPSTF and CDC recommendations, given the prevalence of disease in our region, it is our hospital?s policy to screen for HIV and viral Hepatitis for all patients aged 18 and over and those with ongoing risk factors. Tom Inquiry Pt receiving controlled substance: No Vital Signs: 05/05/24 12:45 Temperature 97.8 F Temperature Source Oral Pulse Rate [Left Radial] 89 Respiratory Rate 18 Blood Pressure [Left Arm] 121/83 Blood Pressure Mean [Left Arm] 95 02 Sat by Pulse Oximetry 100
[2024-05-05] MEDS: KETOROLAC 60MG/2ML VIAL 60 MG IM (12:57)
[2024-05-05] MEDS: cefTRIAXone 1GM VIAL 1 GM IM (12:57)
[2024-05-05] MEDS: LIDOCAINE 1% 5ML PF VIAL IM (12:57)
[2024-05-05 13:24] VITALS: BP 121/83; PULSE 89; RESP 18; TEMP 36.6
== END 2024-05-05 13:25 | disposition home or self-care (01) ==
PROVIDERS: Emergency Provider Nurse Practitioner Family; PCP Internal Medicine
DX: K04.7 Periapical abscess without sinus (principal)
CPT/HCPCS: 96372; 99213; G0381; J0696; J1885

== ENCOUNTER 2024-05-09 09:37 | Emergency (ER) | payer SELFPAY ==
[2024-05-09 09:46] VITALS: BP 148/100; PULSE 105; RESP 16; TEMP 36.4; O2SAT 100; BMI 25.7
[2024-05-09 09:51] VITALS: BP 151/97; PULSE 103; O2SAT 100
--- NOTE | 2024-05-09 10:19 | CT_ITS ---
FINAL REPORT TECHNIQUE: Thin section axial CT images of the facial bones and sinuses were obtained with contrast. Coronal and sagittal reformatted images were also obtained. This study was performed with techniques to keep radiation doses as low as reasonably achievable, (ALARA). Individualized dose reduction techniques using automated exposure control or adjustment of mA and/or kV according to the patient's size were employed. CLINICAL HISTORY: facial, submandibular swelling, odontogenic infx COMPARISON: None FINDINGS: CT FACIAL BONES: There are multiple missing and carious teeth. There is lucency surrounding the roots of multiple teeth, with widespread periapical abscesses. There is erosion of the anterior maxillary cortex at the level of the canines bilaterally. There is also erosion of the anterior cortex of the right mandible at the level of the right lateral incisor. Anterior to the mandible there is an 18 mm fluid collection, likely representing an abscess with surrounding presumed cellulitis. There is diffuse enlargement with increased attenuation of the parotid glands, submandibular glands, and lacrimal glands likely inflammatory. The thyroid gland is diffusely enlarged and heterogeneous as well. IMPRESSION: Lucencies around the roots of multiple teeth, along with widespread periapical abscesses. Anterior to the mandible there is an 18 mm fluid collection, likely representing an abscess with presumed surrounding cellulitis. There is also diffuse enlargement and increased attenuation of the parotid glands, submandibular glands, lacrimal glands, and thyroid gland. The possible etiologies include Sjogren's syndrome, Mikalicz syndrome, or lymphoma. Reviewed, Interpreted and Dictated by Willie Rich III, MD Transcribed by Sally Chew Authenticated and . [facility]
--- NOTE | 2024-05-09 10:22 | ED_ITS ---
Discharge Plan Disposition Patient Disposition: Xfer Other Prescriptions Prescriptions: No Action ibuprofen [IBU] 800 mg tablet 800 mg PO Q8HP PRN (Reason: Moderate Pain) Qty: 30 0RF amoxicillin-pot clavulanate 875-125 mg Tablet 1 tab PO Q12H Qty: 20 0RF Referrals Follow up/Referrals: Nelson Ayers DO [Primary Care Provider] - See instructions Clinical Impressions Clinical Impression: Necrosis of dental pulp, Dental caries, Cellulitis of face, Abscess of face, ANUG (acute necrotizing ulcerative gingivitis), Failure of outpatient treatment, Sepsis Print Language Print Language: Icelandic Discharge ED Provider: Sachin Chin General Adult HPI General Chief complaint: Dental/Oral Stated complaint: lower jaw and face pain Time Seen by Provider: 05/09/24 10:14 Mode of Arrival: Ambulatory Source of Information: Patient Limitations: No Limitations Description of Symptoms (Recalled from ER Triage Doc. by RN): pt c/o R jaw pain, R sinus pain, and edema in the lower half of her face. pt states the pain is sharp and throbbing in nature and a 10/10. pt was seen in the [facility] on 05/05 and put on amoxicillin. she states the edema and pain just continues to get worse. pt states Dr. Tavera is suppose to remove all of her teeth in two weeks. History of Present Illness HPI narrative: Patient is a 33-year-old presenting today with submandibular and facial pain and swelling. States that she initially had significant dental caries and presumed to have a dental infection with started on oral antibiotics last Tuesday but pain and swelling in the submandibular region in particular the right side of her jaw have increasingly worsened. She has been followed by Dr. Vail with plans to have all of her teeth extracted but this has not been accomplished yet. No fevers or chills. She is able to swallow no drooling. Related Data Previous Rx's ?Medication ?Instructions ?Recorded amoxicillin 875 mg-potassium 1 tab PO Q12H #20 tabs 05/05/24 clavulanate 125 mg tablet ibuprofen 800 mg tablet (IBU) 800 mg PO Q8HP PRN Moderate Pain 05/05/24 #30 tabs Allergies Allergy/AdvReac Type Severity Reaction Status Date / Time diphenhydramine (From Allergy Severe Unknown Verified 04/27/23 15:14 Benadryl Allergy) allergy reaction PFSH PFSH Disclaimer: The information contained in this section may have been updated after the patient was seen, as this information can be updated by other users. Surgical History H/O foot surgery right H/O pelvic surgery Family History Family/Other Cancer Paternal side Social History Smoking Status: Current every day smoker tobacco type: cigarettes packs per day: 1 alcohol intake: never current occupational status: other Travel in the last 8 weeks: None Other Medical History Have you received the Flu Vaccine for this season: No Have you received the Pneumonia Vaccine: No ROS Obtained: Yes All systems reviewed & no additional complaints except as documented Physical Exam General General appearance: alert and in no apparent distress ENT ENT exam: Present other (Patient has extensive swelling over the right body and angle of the mandible in the submandibular region the submandibular space is soft she has no tongue elevation she is able to swallow no trismus she has extensive necrotic dental caries) Respiratory Respiratory exam: Present normal lung sounds bilaterally Cardiovascular Cardiovascular exam: Present regular rate Neurological Exam Neurological exam: Present alert and oriented X3 Medical Decision Making Medical Records Screening: Per USPSTF and CDC recommendations, given the prevalence of disease in our region, it is our hospital?s policy to screen for HIV and viral Hepatitis for all patients aged 18 and over and those with ongoing risk factors. Tom Inquiry Pt receiving controlled substance: No Vital Signs: 05/09/24 09:46 05/09/24 09:51 Temperature 97.6 F Temperature Source Oral Pulse Rate 103 H Pulse Rate [Left] 105 H Respiratory Rate 16 Blood Pressure 151/97 H Blood Pressure [Right Arm] 148/100 H Blood Pressure Mean [Right Arm] 116 Blood Pressure Source [Right Arm] Automatic Cuff Blood Pressure Position [Right Arm] Sitting 02 Sat by Pulse Oximetry 100 100 Oxygen Delivery Method Room Air Lab Data Lab results reviewed: Yes I reviewed the patient's lab results. Lab Results 05/09/24 10:35: WBC 13.4 H, RBC 4.47, Hgb 13.9, Hct 42.0, MCV 93.9, MCH 31.2, MCHC 33.2, RDW 12.9, Plt Count 416, MPV 7.8, Neut % (Auto) 74.8, Lymph % (Auto) 16.2, Johnston % (Auto) 6.2, Eos % (Auto) 2.3, Baso % (Auto) 0.5, Neut # (Auto) 10.0 H, Lymph # (Auto) 2.2, Johnston # (Auto) 0.8, Eos # (Auto) 0.3, Baso # (Auto) 0.1, E SR 29 H, Sodium 140, Potassium 3.9, Chloride 110 H, Carbon Dioxide 26, Anion Gap 7.9, BUN 7, Creatinine 0.70, Estimated Creat Clear 110, Estimated GFR 96, Est GFR ( Amer) 116, Glucose 88, Calcium 9.5, Total Bilirubin 0.3, AST 31, ALT 32, Alkaline Phosphatase 84, C-Reactive Protein 25.5 H, Total Protein 7.7, Albumin 4.2, Globulin 3.5 H, Albumin/Globulin Ratio 1.2, Serum HCG, Qual Negative 05/09/24 10:35 05/09/24 10:35 Orders (Tests/Meds): ED MEDICATIONS Generic Name Dose Route Start Last Admin Trade Name Freq PRN Reason Stop Dose Admin Vancomycin/PEG/NADA/Lysine/Water 1.25 gm in 250 mls @ 125 mls/hr 05/09/24 12:00 05/09/24 12:41 Vancomycin 1.25gm/250ml (Peg) Premix IV 05/09/24 13:59 125 mls/hr ONCE ONE Administration Discontinued Medications Generic Name Dose Route Start Last Admin Trade Name Freq PRN Reason Stop Dose Admin Sodium Chloride 1,000 mls @ 999 mls/hr 05/09/24 10:30 05/09/24 10:41 Sod Chlor 0.9% 1000ml Bag IV 05/09/24 11:30 999 mls/hr .Q1H1M JACQUIE Administration Piperacillin Sod/Tazobactam 50 mls @ 100 mls/hr 05/09/24 10:21 05/09/24 10:56 Sod 3.375 gm/ Sodium Chloride IV 05/09/24 10:50 100 mls/hr ONCE ONE Administration Clindamycin Phosphate 600 mg in 50 mls @ 100 mls/hr 05/09/24 11:54 05/09/24 12:03 Clindamycin 600mg/50ml D5w Premix IV 05/09/24 12:23 100 mls/hr ONCE ONE Administration Iopamidol 100 ml 05/09/24 11:21 05/09/24 11:22 Iopamidol-370 (76%);100ml Bottle IV 05/09/24 11:22 100 ml ONCE ONE Administration Ketorolac Tromethamine 15 mg 05/09/24 10:19 05/09/24 10:41 Ketorolac 30mg/Ml Vial IV 05/09/24 10:20 15 mg ONCE ONE Administration Miscellaneous 1 each 05/09/24 12:00 05/09/24 12:47 Vancomycin Consult Request NOTAPPLIC 06/08/24 11:59 Not Given CON[facility] Sodium Chloride 10 ml 05/09/24 11:21 05/09/24 11:22 Sodium Chloride 0.9% 10ml Syr (Rad Only) IV 05/09/24 11:22 10 ml ONCE ONE Administration ORDERS Category Date Time Status CT facial bones w con Stat Cat Scan 05/09/24 10:19 Taken CBC w/Auto Diff [Complete Blood Count Auto Diff] Stat Lab 05/09/24 10:35 Completed CMP [Comprehensive Metabolic Panel] Stat Lab 05/09/24 10:35 Completed CRP [C-Reactive Protein] Stat Lab 05/09/24 10:35 Completed ESR [Erythrocyte Sedimentation Rate] Stat Lab 05/09/24 10:35 Completed HCG Qualitative, Serum Stat Lab 05/09/24 10:35 Completed Blood Culture Stat Micro 05/09/24 10:00 Received Tissue Perfus/Sepsis Re-Eval Sepsis Re-Evaluation Performed: Yes Date Performed: 05/09/24 Time Performed: 12:49 Medical Decision Narrative: 33-year-old with significant facial cellulitis in the mandibular region no evidence of airway compromise or Lorenzo's angina will get a CT scan however to further evaluate this as she could have a localize drainable fluid collection nonetheless she will need IV antibiotics and is failed oral antibiotics she has extensive necrotic dental caries and likely will need to have her teeth extracted and may need urgent oral surgery. Sepsis workup has also been initiated as the patient is tachycardic. Reassessment 1249 patient remains hemodynamically stable patient does have an elevated white blood cell count therefore is objectively septic with facial infection no evidence of endorgan damage or shock. IV fluids initiated on CT scan that I personally interpreted there is a 1 x 2 cm area of localized fluid collection in the midline of her chin consistent with an abscess in this region external to the mandible there is also evidence of subcutaneous gas and what appears to me to be soft tissue gas that is tracking in the soft tissues up through the neck. However the soft tissue gas could be in the recesses of the mucosal surfaces but clinically given how extensive her periodontal disease and dental disease is with this localized abscess and sepsis I am concerned about necrotizing ulcerative gingivitis. Additionally the localized fluid collection will require a facial surgeon and she has failed oral antibiotics and will require IV antibiotics. I spoke with Dr. Olman Blackman at the [facility] who reviewed the images with [facility] and they accepted the patient for further evaluation to [place] emergency department. Patient is aware of this and agreeable to this plan. Bank Zosyn and clindamycin have been initiated for possible necrotizing infection. Critical Care Critical Care Time Critical Care Time: Yes Attestation: On 05/09/24, the high probability of a clinically significant, sudden or life threatening deterioration of the following system(s) required my full and direct attention, intervention and personal management. The time I documented below is in addition to time spent performing reported procedures but includes the following listed in this critical care notation. Total Time Total Critical Care Time: 65
[2024-05-09] MEDS: 0.9 % SODIUM CHLORIDE 1000ML 1,000 ML 999 ML IV (10:41)
[2024-05-09] MEDS: KETOROLAC 30MG/ML VIAL 15 MG IV (10:41)
[2024-05-09 10:54] LABS: Albumin Level 4.2 g/dl (3.5-5.0); Chloride 110 mmol/L (98-107); Potassium 3.9 mmoL/L (3.5-5.1); Sodium 140 mmol/L (136-145)
[2024-05-09] MEDS: PIPERCILLIN/TAZO 3.375 GM in 0.9 % SODIUM CHLORIDE 50 ML IV (10:56)
[2024-05-09 10:57] LABS: Alanine Aminotransferase 32 U/L (12-78); Albumin/Globulin Ratio 1.2 (1.1-1.8); Alkaline Phosphatase 84 U/L (38-126); Anion Gap 7.9 mEq/L (5-15); Aspartate Amino Transferase 31 U/L (14-36); Bilirubin,Total 0.3 mg/dl (0.2-1.3); Blood Urea Nitrogen 7 mg/dl (7-17); Calcium 9.5 mg/dl (8.4-10.2); Carbon Dioxide 26 mmol/L (22.0-30.0); Creatinine Clearance Estimated 110 mL/min (50-200); Estimated Glomerular Filt Rate 96 ml/min (>60); GFR (African American) 116 ML/MIN (>60); Globulin 3.5 g/dL (1.3-3.2); Glucose 88 mg/dl (74-100); Total Protein,Serum 7.7 g/dl (6.3-8.2)
--- NOTE | 2024-05-09 10:58 | PC.NURSE ---
I rounded on the pt. no new complaints at this time, no needs voiced. call siddiqi in reach.
[2024-05-09 10:59] LABS: Basophils # 0.1 K/mm3 (0-0.2); Basophils % 0.5 % (0.1-2.0); Eosinophils # 0.3 K/mm3 (0.0-0.4); Eosinophils % 2.3 % (0.1-12.0); Hemoglobin 13.9 g/dL (12.2-16.2); Lymphocytes # 2.2 K/mm3 (0.7-4.5); Lymphocytes % 16.2 % (10-50); Mean Corpuscular HGB Conc 33.2 g/dL (31.8-35.4); Mean Corpuscular Hemoglobin 31.2 pg (27.0-31.2); Mean Corpuscular Volume 93.9 fl (81-99); Mean Platelet Volume 7.8 fl (7.4-10.4); Monocytes # 0.8 K/mm3 (0.1-1.0); Monocytes % 6.2 % (1.7-9.3); Neutrophils % 74.8 % (37.0-80.0); Platelet Count 416 K/mm3 (142-424); Red Blood Count 4.47 M/mm3 (4.20-5.40); Red Cell Distribution Width 12.9 % (11.5-17.5); White Blood Count 13.4 K/mm3 (4.8-10.8)
[2024-05-09 11:01] LABS: HCG Qualitative, Serum Negative (Negative)
[2024-05-09 11:02] LABS: C-Reactive Protein 25.5 mg/L (0-4)
[2024-05-09] MEDS: SODIUM CHLORIDE 0.9% 10ML SYR (RAD ONLY) 10 ML IV (11:22)
[2024-05-09] MEDS: IOPAMIDOL-370 (76%);100ML BOTTLE 100 ML IV (11:22)
[2024-05-09 11:34] LABS: Erythrocyte Sedimentation Rate 29 mm/hr (0-20)
--- NOTE | 2024-05-09 11:53 | PC.NURSE ---
calling [facility] at this time.
[2024-05-09] MEDS: CLINDAMYCIN PHOSPHATE/D5W 600 MG/50 ML PIGGYBACK 100 MG IV (12:03)
--- NOTE | 2024-05-09 12:33 | PC.NURSE ---
o/p with at this time.
[2024-05-09] MEDS: VANCOMYCIN/WATER FOR INJ (PEG) 1.25 GM/250 ML PIGGYBACK IV (12:41)
--- NOTE | 2024-05-09 12:45 | PC.NURSE ---
at accepted patient at this time.
--- NOTE | 2024-05-09 13:08 | PC.NURSE ---
calling ems at this time
--- NOTE | 2024-05-09 13:09 | PC.NURSE ---
Report called to KATHIA Gonzalez at [facility].
[2024-05-09 13:37] VITALS: BP 151/97; PULSE 103; RESP 16; TEMP 36.4; O2SAT 100
== END 2024-05-09 13:46 | disposition other institution (70) ==
PROVIDERS: Emergency Provider Student in an Organized Health Care Education/Training Program; PCP Internal Medicine
DX: A41.9 Sepsis, unspecified organism (principal); A69.1 Other Vincent's infections; L02.01 Cutaneous abscess of face; L03.211 Cellulitis of face; K02.9 Dental caries, unspecified; K04.1 Necrosis of pulp; Z78.9 Other specified health status; J34.89 Other specified disorders of nose and nasal sinuses; R68.84 Jaw pain
CPT/HCPCS: 70487; 80053; 84703; 85025; 85651; 86140; 87040; 96361; 96365; 96366; 96367; 96368; 96374; 99291; J0736; J1885; J2543; J3372; J7030; Q9967

== ENCOUNTER 2024-05-13 22:15 | Outpatient (CLI) | payer SELFPAY | END 2024-05-13 23:59 | disposition home or self-care (01) | LOC: LAB 22:17 | PROVIDERS: Visit Provider Emergency Medicine | DX: Z02.9 Encounter for administrative examinations, unspecified (principal) ==